=== PATIENT | female | born 1970 | race Two or more races ===

== ENCOUNTER 2019-06-10 10:10 | Day surgery (SDC) | payer OTHER ==
[2019-06-01 11:17] VITALS: BP 132/90
[~2019-06-10] VITALS: Ht 165.1 cm; Wt 84.1 kg
[~2019-06-10 10:10] MED LIST: ASPI-496 PO; CARV25TA12 PO; CHLO50TA PO; EMPA10TA PO; EMPA25TA PO; GLYB2.5T2 PO; INSU100I34 SC; LOSA100T14 PO; METF500T17 PO
[2019-06-10] MEDS ORDERED: LACTATED RINGERS 1,000 ML IV SCH ×2 (10:33→15:16)
[2019-06-10 11:23] LABS: HCG UR SG 1.022 (1.003-1.030)
[2019-06-10] MEDS ORDERED: MIDAZOLAM 1 MG/ML, 2ML ONE (12:15)
[2019-06-10] MEDS ORDERED: FENTANYL PF 250 MCG/5ML ONE (12:15)
[2019-06-10] MEDS ORDERED: PROMETHAZINE 25 MG/ML, 1ML IV PRN (13:00)
[2019-06-10] MEDS ORDERED: MEPERIDINE/PF 25MG/0.5ML IVPush PRN (13:00)
[2019-06-10] MEDS ORDERED: LABETALOL 5MG/ML, 20ML IV PRN (13:00)
[2019-06-10] MEDS ORDERED: hydrALAzine 20 MG/ML, 1ML IV PRN (13:00)
[2019-06-10] MEDS ORDERED: DIAZEPAM 5 MG/ML, 2ML IVPush PRN (13:00)
[2019-06-10] MEDS ORDERED: ALBUTEROL SULFATE 2.5 MG/3 ML NPPB PRN (13:00)
[2019-06-10] MEDS ORDERED: KETOROLAC 30 MG/1 ML IV PRN (13:00)
[2019-06-10] MEDS ORDERED: HYDROmorphone 2 MG/ML, 1ML IVPush PRN (13:00)
[2019-06-10] MEDS ORDERED: ACETAMINOPHEN 325 MG TABLET PO PRN (13:00)
[2019-06-10] MEDS ORDERED: GLYCOPYRROLATE 0.2MG/1ML, 5ML ONE (13:23)
[2019-06-10] MEDS ORDERED: DEXAMETHASONE 4 MG/ML, 1ML ONE (13:23)
[2019-06-10] MEDS ORDERED: ROCURONIUM 10MG/ML,5ML ONE (13:23)
[2019-06-10] MEDS ORDERED: NEOSTIGMINE 1 MG/ML, 10ML ONE (13:23)
[2019-06-10] MEDS ORDERED: SUCCINYLCHOLINE 20 MG/ML, 10ML ONE (13:23)
[2019-06-10] MEDS ORDERED: CEFAZOLIN 1,000 MG ONE (13:23)
[2019-06-10] MEDS ORDERED: PROPOFOL 10 MG/ML, 20ML ONE (13:23)
[2019-06-10] MEDS ORDERED: ONDANSETRON 2MG/ML, 2ML ONE (13:23)
[2019-06-10] MEDS ORDERED: FENTANYL PF 100 MCG/2ML ONE ×2 (13:35→13:50)
[2019-06-10] MEDS ORDERED: OXYcodone 5 MG/5 ML ORAL.SOL UDC ONE ×2 (13:35→14:02)
[2019-06-10] MEDS ORDERED: KETOROLAC 30 MG/1 ML ONE (13:35)
[2019-06-10] MEDS ORDERED: ACETAMINOPHEN 650 MG/20.3 ML UDC ONE (13:35)
[2019-06-10] MEDS: FENTANYL PF 100 MCG/2ML IV PRN ×4 (13:40→14:01)
[2019-06-10] MEDS: OXYcodone 5 MG/5 ML ORAL.SOL UDC PO PRN ×2 (13:42→14:03)
[2019-06-10] MEDS ORDERED: MEPERIDINE/PF 25MG/ML,1ML ONE (14:04)
[2019-06-10] MEDS ORDERED: HYDROmorphone 2 MG/ML, 1ML ONE (14:34)
[2019-06-10] MEDS ORDERED: OXYcodone/APAP 5/325MG TABLET PO PRN (15:30)
[2019-06-10] MEDS ORDERED: ONDANSETRON 2MG/ML, 2ML IVPush PRN (15:30)
[2019-06-10] MEDS: morphine SULFATE 10 MG/ML, 1ML IVPush PRN ×2 (15:32→16:00)
== END 2019-06-10 18:20 | disposition home or self-care (01) ==
LOC: OUT 10:10
PROVIDERS: ATTEND Surgery
DX: K43.6 Other and unspecified ventral hernia with obstruction, without gangrene (principal); E11.9 Type 2 diabetes mellitus without complications; I10 Essential (primary) hypertension; E78.5 Hyperlipidemia, unspecified; F17.210 Nicotine dependence, cigarettes, uncomplicated; Z79.82 Long term (current) use of aspirin; Z79.84 Long term (current) use of oral hypoglycemic drugs; Z79.899 Other long term (current) drug therapy; Z83.3 Family history of diabetes mellitus
CPT/HCPCS: 49653; 81025; 82962; C1781; J0690; J1100; J1170; J1885; J2175; J2250; J2270; J2405; J2704; J2710; J3010; J7120; S2900; J0330

== ENCOUNTER 2019-10-31 13:13 | Emergency (ER) | payer OTHER ==
[~2019-10-31] VITALS: Ht 165.1 cm; Wt 83.0 kg
[~2019-10-31 13:13] MED LIST changes: +jardiance PO
--- NOTE | 2019-10-31 13:16 | NUR ---
No answer to triage x 1.
--- NOTE | 2019-10-31 13:50 | NUR ---
PT ATTACHED TO MONITORS, MASK IN PLACE. ERP AT BEDSIDE FOR ASSESSMENT. PT PROVIDED WITH WARM BLANKETS. DENIES ANY NEEDS OR CONCERNS AT THIS TIME. CALL LIGHT IN REACH.
[2019-10-31 14:09] LABS: BASOPHILS # (AUTO) 0.07 x10^3/uL (0-0.1); BASOPHILS % (AUTO) 0 % (0-1); EOSINOPHILS # (AUTO) 0.43 x10^3/uL (0-0.4); EOSINOPHILS % (AUTO) 3 % (1-7); LYMPHOCYTES # (AUTO) 1.73 x10^3/uL (1-3.4); LYMPHOCYTES % (AUTO) 12 % (22-44); MD NO; MEAN CORPUSCULAR HEMOGLOBIN 29.3 pg (27.0-34.8); MEAN CORPUSCULAR HGB CONC 32.8 g/dL (32.4-35.8); MEAN CORPUSCULAR VOLUME 89.2 fL (80-100); MEAN PLATELET VOLUME 8.4 fL (7.4-10.4); MONOCYTES # (AUTO) 0.59 x10^3/uL (0.2-0.8); MONOCYTES % (AUTO) 4 % (2-9); NEUTROPHILS # (AUTO) 12.08 x10^3/uL (1.8-6.8); NEUTROPHILS % (AUTO) 81 % (42-75); PLATELET COUNT 296 x10^3/uL (130-400); RED BLOOD COUNT 4.98 x10^6/uL (3.82-5.3); RED CELL DISTRIBUTION WIDTH 13.3 % (9.6-15.2)
[2019-10-31 14:22] LABS: ALANINE AMINOTRANSFERASE 35 U/L (12-78); ANION GAP 12 mmol/L (5-15); CHLORIDE 107 mmol/L (98-107); CREATININE 1.21 mg/dL (0.55-1.02)
[2019-10-31 14:24] LABS: ALKALINE PHOSPHATASE 83 U/L (45-117); BILIRUBIN,TOTAL 0.5 mg/dL (0.2-1.0); TOTAL PROTEIN 8.6 g/dL (6.4-8.2)
[2019-10-31 14:27] LABS: RAPID INFLUENZA A Negative (Negative); RAPID INFLUENZA B Negative (Negative)
[2019-10-31] MEDS ORDERED: SODIUM CHLORIDE 0.9% 1,000ML IVBOLUS ONE ×2 (14:30→16:00)
--- NOTE | 2019-10-31 15:31 | NUR ---
REPORT FROM MIGUEL HOLM. SPOKE WITH ERP REGARDING HR (130'S, AFEBRILE). PER ERP, SECOND LITER IVF HUNG. NO LA/BC'S ORDERED AT THIS TIME.
[2019-10-31 16:30] VITALS: BP 170/100
--- NOTE | 2019-10-31 16:42 | NUR ---
PT AMBULATED STEADILY TO BATHROOM WITH SPOUSE
[2019-10-31] MEDS ORDERED: AZITHROMYCIN 500 MG TABLET PO ONE (17:30)
[2019-10-31] MEDS ORDERED: AZITHROMYCIN 250 MG TABLET ONE (17:33)
--- NOTE | 2019-10-31 17:36 | NUR ---
DC EDUCATION PROVIDED BY MIGUEL MARTINEZ VIA ADVERTISING VICE PRESIDENT COMPUTER. PT MEDICATED PER EMAR WITH ABX
[2019-10-31] MEDS ORDERED: ACETAMINOPHEN 500 MG TABLET ONE (17:47)
--- NOTE | 2019-10-31 17:50 | NUR ---
NO S/S OF ABX RXN NOTED. PT REQUESTING MEDICATIONS FOR PAIN. MEDICATED WITH TYLENOL PER EMAR. PT AMBULATED STEADILY TO DC WITH RN AND FAMILY. FAMILY TO TRANSPORT PT HOME
[2019-10-31] MEDS ORDERED: ACETAMINOPHEN 500 MG TABLET PO ONE (18:00)
== END 2019-10-31 18:05 | disposition home or self-care (01) ==
LOC: ED 16:04
DX: A37.90 Whooping cough, unspecified species without pneumonia (principal); I10 Essential (primary) hypertension; E11.9 Type 2 diabetes mellitus without complications; R11.10 Vomiting, unspecified
CPT/HCPCS: 36415; 71046; 80053; 85025; 85379; 86308; 87400; 93005; 96360; 96361; 99284; J7030

== ENCOUNTER 2020-01-13 14:57 | Emergency (ER) | payer OTHER ==
[~2020-01-13] VITALS: Ht 160 cm; Wt 79.9 kg
[2020-01-13 16:04] LABS: BASOPHILS # (AUTO) 0.04 x10^3/uL (0-0.1); BASOPHILS % (AUTO) 0 % (0-1); EOSINOPHILS # (AUTO) 0.21 x10^3/uL (0-0.4); EOSINOPHILS % (AUTO) 2 % (1-7); LYMPHOCYTES % (AUTO) 25 % (22-44); MD NO; MEAN CORPUSCULAR HEMOGLOBIN 29.3 pg (27.0-34.8); MEAN CORPUSCULAR HGB CONC 33.7 g/dL (32.4-35.8); MEAN PLATELET VOLUME 8.8 fL (7.4-10.4); MONOCYTES # (AUTO) 0.82 x10^3/uL (0.2-0.8); MONOCYTES % (AUTO) 8 % (2-9); NEUTROPHILS # (AUTO) 7.14 x10^3/uL (1.8-6.8); NEUTROPHILS % (AUTO) 65 % (42-75); PLATELET COUNT 349 x10^3/uL (130-400); RED BLOOD COUNT 4.95 x10^6/uL (3.82-5.3); RED CELL DISTRIBUTION WIDTH 14.3 % (9.6-15.2)
[2020-01-13 16:13] LABS: ALBUMIN 4.4 g/dL (3.4-5.0); ANION GAP 11 mmol/L (5-15); CALCIUM 9.6 mg/dL (8.5-10.1); CHLORIDE 104 mmol/L (98-107)
[2020-01-13 16:18] LABS: ALANINE AMINOTRANSFERASE 39 U/L (12-78); ALKALINE PHOSPHATASE 80 U/L (45-117); BILIRUBIN,TOTAL 1.1 mg/dL (0.2-1.0); CREATININE 2.01 mg/dL (0.55-1.02); TOTAL PROTEIN 9.2 g/dL (6.4-8.2); TROPONIN I < 0.015 ng/mL (0.000-0.045)
--- NOTE | 2020-01-13 16:49 | NUR ---
PT WALKED BACK FROM LOBBY TO ROOM AT THIS TIME.
[2020-01-13] MEDS ORDERED: SODIUM CHLORIDE FLUSH 10ML SYR IVF ONE (17:00)
[2020-01-13] MEDS ORDERED: SODIUM CHLORIDE 0.9% 1,000ML IVBOLUS ONE (17:00)
--- NOTE | 2020-01-13 17:54 | NUR ---
PT UP TO BR FOR UA COLLECTION. STRONG STEADY GAIT. IV PLACED AND BOLUS STARTED. URINE SENT TO LAB FOR PROCESSING.
[2020-01-13 18:16] LABS: MICROSCOPIC INDICATED
[2020-01-13 18:32] LABS: CULTURE INDICATED? YES
--- NOTE | 2020-01-13 18:43 | NUR ---
IV BOLUS FINISHED. 1000ML INFUSED. PT STATES "I'M FEELING MUCH BETTER". PT EATING DORITOS IN ROOM.
--- NOTE | 2020-01-13 19:21 | NUR ---
PT PREPARED FOR DISCHARGE. IV TO BE REMOVED, AND INSTRUCTIONS TO PATIENT VIA DAUGHTER THE TARGET SETTER
[2020-01-13 19:30] VITALS: BP 118/69
== END 2020-01-13 19:34 | disposition home or self-care (01) ==
LOC: ED 15:57
DX: R11.2 Nausea with vomiting, unspecified (principal); R19.7 Diarrhea, unspecified; N28.9 Disorder of kidney and ureter, unspecified; R53.83 Other fatigue; I10 Essential (primary) hypertension; E11.9 Type 2 diabetes mellitus without complications
CPT/HCPCS: 80053; 81001; 82962; 84484; 85025; 87086; 96360; 99283; J7030

== ENCOUNTER → 2021-01-25 | Outpatient (CLI) | payer OTHER | END | disposition home or self-care (01) | LOC: CFH 08:13 | PROVIDERS: ATTEND Physician Assistant Medical | DX: I10 Essential (primary) hypertension (principal); R07.9 Chest pain, unspecified | CPT/HCPCS: 78452; 93017; A9502 ==